=== PATIENT | female | born 1950 | race Caucasian/White ===

== ENCOUNTER 2024-02-28 15:25 | Outpatient (CLI) | payer MEDICARE, SELFPAY | END 2024-02-28 15:26 | disposition home or self-care (01) | PROVIDERS: Visit Provider Family Medicine | DX: R53.83 Other fatigue (principal); Z13.228 Encounter for screening for other metabolic disorders; Z13.220 Encounter for screening for lipoid disorders; Z13.6 Encounter for screening for cardiovascular disorders | CPT/HCPCS: 80053; 80061 ==